=== PATIENT | male | born 1965 | race American Indian/Alaskan Native ===

== ENCOUNTER 2017-07-30 13:27 | Emergency (ER) | payer MEDICARE ==
[2017-07-30 14:05] VITALS: BP 191/109
[2017-07-30] MEDS ORDERED: NORCO 5/325 PO ONE (14:30)
[2017-07-30] MEDS ORDERED: DELTASONE PO ONE (14:30)
[2017-07-30] MEDS ORDERED: MOTRIN PO ONE (14:30)
--- NOTE | 2017-07-30 14:35 | Emergency Department Report ---
Upper Extremity - HPI Chief Complaint: Extremity Problem,Nontraumatic Stated Complaint: LEFT HAND INJURY Time Seen by Provider: 07/30/17 14:29 Upper Extremity: Left Wrist, Left Hand Occurred When: 3 Days Mechanism: Other ("Gout flare") Symptoms: Yes Pain with Movement, Yes Limited Range of Movement, Yes Swelling, No Deformity, No Numbness, No Weakness, No Bruising/Ecchymosis, No Laceration or Abrasion ED Review of Systems ROS: Stated complaint: LEFT HAND INJURY Other details as noted in HPI Constitutional: denies: chills, fever Eyes: denies: eye pain, eye discharge, vision change ENT: denies: ear pain, throat pain Respiratory: denies: cough, shortness of breath, wheezing Cardiovascular: denies: chest pain, palpitations Endocrine: no symptoms reported Gastrointestinal: denies: abdominal pain, nausea, diarrhea Genitourinary: denies: urgency, dysuria Musculoskeletal: joint swelling, arthralgia Skin: denies: rash, lesions Neurological: denies: headache, weakness, paresthesias Psychiatric: denies: anxiety, depression Hematological/Lymphatic: denies: easy bleeding, easy bruising ED Past Medical Hx - Past Medical History Previous Medical History?: Yes Hx Hypertension: Yes Additional medical history: MS, Gout. "irregular heart beat" - Surgical History Past Surgical History?: Yes Additional Surgical History: right hand surgery - Social History Smoking Status: Never Smoker Substance Use Type: None - Medications Home Medications: Home Medications Medication Instructions Recorded Confirmed Last Taken Type Hydrochlorothiazide [HCTZ] 25 mg PO QDAY 09/08/15 09/08/15 Unknown History amLODIPine [Norvasc] 10 mg PO DAILY 09/08/15 09/08/15 Unknown History Colchicine 0.6 mg PO Q60MIN #3 capsule 04/28/16 Unknown Rx Ibuprofen [Motrin 800 MG tab] 800 mg PO Q8HR PRN #30 tablet 04/28/16 Unknown Rx predniSONE [Deltasone] 20 mg PO QDAY #15 tab 04/28/16 Unknown Rx Acetaminophen/Codeine [Tylenol #3] 1 tab PO Q4HR PRN #14 tablet 07/31/16 Unknown Rx Diclofenac Sodium 75 mg PO BID #60 tablet.dr 07/31/16 Unknown Rx Colchicine 0.6 mg PO BID #15 tablet 07/30/17 Unknown Rx Upper Extremity Exam - Exam General: Vital signs noted. No distress. Alert and acting appropriately. Head and Torso: No HEENT Abnormality, No Neck Tenderness, No Chest/Lungs Abnormality, No Abdominal Tenderness, No Back Tenderness Shoulder Exam: Yes Normal Range of Motion in Shoulder, No Shoulder Tenderness, No Clavicle Tenderness, No Shoulder Deformity, No AC Joint Tenderness Arm Exam: No Arm/Humerus Tenderness, No Arm Deformity Elbow: No Elbow Tenderness, No Normal Range of Motion in Elbow, No Elbow Deformity Forearm: No Forearm Tenderness, No Forearm Deformity, No Pain with Pronation, No Pain with Supination Wrist: Yes Wrist Tenderness, No Normal ROM in Wrist (pain swelling with rom ), No Wrist Deformity, No Snuffbox Tenderness, No Pain with Axial Thumb Compression Hand: Yes Hand Tenderness (generalized tenderness swelling warm to touch ), Yes Digit Tenderness (pain swelling generalized ), No Hand Deformity, No Normal ROM in Digit(s), No Digit(s) Deformity, No Tendon Dysfunction CMS Exam: Yes Normal Distal Pulses, Yes Normal Capillary Refill, Yes Normal Distal Sensation, No Broken Skin ED Course Vital Signs 07/30/17 13:56 Temperature 97.8 F Pulse Rate 103 H Respiratory 10 L Rate Blood Pressure 191/109 O2 Sat by Pulse 98 Oximetry ED Medical Decision Making - Medical Decision Making pt is a 52 y/o aam with hx of gout and htn pt states out of medications x 1 month pt presents today for left hand pain, swelling, and hot to touch, pain is 5/10 aching pain is relieved by nothing pain is exacerbated by movement palpation flexion and extension, there is no numbness or tingling. no weakness or numbness exam: left hand wrist and digit swelling rad pulses +2, pain with rom, glass cleaner <3 sec , there is no numbness no weakness. pt denies fall injury or trauma, pt with htn episode today , pt advises that he has not take bp medication today no headach no dizziness no lightheadedness no cp no sob, pt has not take hctz po daily , pt directed to take medications upon arrival to home. Plan: Steroids, nsaids, reassess : pain decreased 1/10 swelling decrease rom improved, plan: refill colchine po , pt will follow up primary care doctor on wednesday 3 days for follow up evaluation. pt again directed to take medications upon arrival to home pt verbalized understanding and agreement with same. pt is currently a/o x 3 ambulatory gait steady with nad at this time. Critical care attestation.: If time is entered above; I have spent that time in minutes in the direct care of this critically ill patient, excluding procedure time. ED Disposition Clinical Impression: Gout Qualifiers: Gout site: wrist Gout etiology: idiopathic Chronicity: acute Laterality: left Qualified Code(s): M10.032 - Idiopathic gout, left wrist Disposition: TO HOME OR SELFCARE Is pt being admited?: No Does the pt Need Aspirin: No Condition: Good Instructions: Acute Gouty Arthritis (ED), Colchicine (By mouth) Prescriptions: Colchicine 0.6 mg PO BID #15 tablet Referrals: PRIMARY CARE, [Primary Care Provider] - 3-5 Days Forms: Work/School Release Form(ED) Time of Disposition: 15:49
== END 2017-07-30 15:59 | disposition home or self-care (01) ==
LOC: ED 13:27
DX: M10.032 Idiopathic gout, left wrist (principal); I10 Essential (primary) hypertension
CPT/HCPCS: 99282; J7512

== ENCOUNTER 2021-01-05 21:03 | Emergency (ER) | payer MEDICARE ==
[2021-01-05 22:11] VITALS: BP 185/109
[2021-01-05] MEDS ORDERED: oxyCODONE /ACETAMINOPHEN 5-325MG TAB PO ONE (22:51)
[2021-01-05] MEDS ORDERED: KETOROLAC 30 MG/1 ML INJ IM ONE (22:51)
[2021-01-05] MEDS ORDERED: COLCHICINE 0.6 MG TAB PO ONE (22:52)
--- NOTE | 2021-01-05 22:57 | Emergency Department Report ---
ED Extremity Problem HPI - General Chief complaint: Extremity Injury, Lower Stated complaint: RIGHT KNEE PAIN Time Seen by Provider: 01/05/21 22:41 Source: patient Mode of arrival: Ambulatory Limitations: No Limitations - History of Present Illness Initial comments: 55-year-old -[place] male presents to the emergency room for right knee gout exacerbation. Patient states is been bothering for the past week. He did start taking his prednisone but failed to take his colchicine and diclofenac's. It was noted the patient had elevated blood pressure of 189/109. Patient denies any headache shortness of breath chest pain. Patient is only taking hydrochlorothiazide 12.5 mg. Patient states he was on another blood pressure medication but discontinued as making him feel uncomfortable. Patient does have a primary care provider. Last seen 2 months ago. Patient had no recent trauma. MD Complaint: joint swelling, joint paint Onset/Timin -: week(s) Location: right, knee History of Same: Yes -: Yes arthralgia Radiation: none Severity scale (0 -10): 9 Quality: stabbing, aching Consistency: constant Improves with: nothing Worsens with: weight bearing, walking, palpation Associated Symptoms: denies other symptoms - Related Data Home Medications Medication Instructions Recorded Confirmed Last Taken amLODIPine [Norvasc] 10 mg PO DAILY 09/08/15 09/08/15 Unknown hydroCHLOROthiazide [HCTZ] 25 mg PO QDAY 09/08/15 09/08/15 Unknown Previous Rx's Medication Instructions Recorded Last Taken Type Colchicine 0.6 mg PO Q60MIN #3 capsule 04/28/16 Unknown Rx Ibuprofen [Motrin 800 MG tab] 800 mg PO Q8HR PRN #30 tablet 04/28/16 Unknown Rx predniSONE [Deltasone] 20 mg PO QDAY #15 tab 04/28/16 Unknown Rx Acetaminophen/Codeine [Tylenol #3] 1 tab PO Q4HR PRN #14 tablet 07/31/16 Unknown Rx Diclofenac Sodium 75 mg PO BID #60 tablet 07/31/16 Unknown Rx Colchicine 0.6 mg PO BID #15 tablet 07/30/17 Unknown Rx amLODIPine 5 mg PO DAILY #30 tab 01/05/21 Unknown Rx traMADoL [Ultram 50 MG tab] 50 mg PO Q4HR PRN #12 tablet 01/05/21 Unknown Rx Allergies Allergy/AdvReac Type Severity Reaction Status Date / Time No Known Allergies Allergy Verified 07/30/17 13:56 ED Review of Systems ROS: Stated complaint: RIGHT KNEE PAIN Other details as noted in HPI Comment: All other systems reviewed and negative ED Past Medical Hx - Past Medical History Previous Medical History?: Yes Hx Hypertension: Yes Additional medical history: MS, Gout. "irregular heart beat" - Surgical History Past Surgical History?: Yes Additional Surgical History: right hand surgery - Social History Smoking Status: Never Smoker - Medications Home Medications: Home Medications Medication Instructions Recorded Confirmed Last Taken Type amLODIPine [Norvasc] 10 mg PO DAILY 09/08/15 09/08/15 Unknown History hydroCHLOROthiazide [HCTZ] 25 mg PO QDAY 09/08/15 09/08/15 Unknown History Colchicine 0.6 mg PO Q60MIN #3 capsule 04/28/16 Unknown Rx Ibuprofen [Motrin 800 MG tab] 800 mg PO Q8HR PRN #30 tablet 04/28/16 Unknown Rx predniSONE [Deltasone] 20 mg PO QDAY #15 tab 04/28/16 Unknown Rx Acetaminophen/Codeine [Tylenol #3] 1 tab PO Q4HR PRN #14 tablet 07/31/16 Unknown Rx Diclofenac Sodium 75 mg PO BID #60 tablet.dr 07/31/16 Unknown Rx Colchicine 0.6 mg PO BID #15 tablet 07/30/17 Unknown Rx amLODIPine 5 mg PO DAILY #30 tab 01/05/21 Unknown Rx traMADoL [Ultram 50 MG tab] 50 mg PO Q4HR PRN #12 tablet 01/05/21 Unknown Rx ED Physical Exam - General Limitations: No Limitations General appearance: alert, in no apparent distress - Head Head exam: Present: atraumatic, normocephalic - Eye Eye exam: Present: normal appearance - ENT ENT exam: Present: mucous membranes moist - Neck Neck exam: Present: normal inspection, full ROM - Respiratory Respiratory exam: Present: normal lung sounds bilaterally. Absent: respiratory distress - Cardiovascular Cardiovascular Exam: Present: regular rate, normal rhythm. Absent: systolic murmur, diastolic murmur, rubs, gallop - Expanded Lower Extremity Exam Right Knee exam: Present: full ROM, tenderness, swelling Lower Leg exam: Present: normal inspection, full ROM - Neurological Exam Neurological exam: Present: alert, oriented X3 - Psychiatric Psychiatric exam: Present: normal affect, normal mood - Skin Skin exam: Present: warm, dry, intact, normal color. Absent: rash ED Course Vital Signs 01/05/21 22:04 Temperature 98.4 F Pulse Rate 108 H Respiratory 20 Rate Blood Pressure 185/109 O2 Sat by Pulse 96 Oximetry ED Medical Decision Making - Medical Decision Making 55-year-old -[place] male presents to the emergency room for right knee gout exacerbation. Patient states is been bothering for the past week. He did start taking his prednisone but failed to take his colchicine and diclofenac's. It was noted the patient had elevated blood pressure of 189/109. Patient denies any headache shortness of breath chest pain. Patient is only taking hy drochlorothiazide 12.5 mg. Patient states he was on another blood pressure medication but discontinued as making him feel uncomfortable. Patient does have a primary care provider. Last seen 2 months ago. Patient had no recent trauma. Patient was given Toradol 30 mg IM, colchicine 1.2 mg p.o. and Percocet 5/3 25 x 2 tablets. Patient be discharged on amlodipine for elevated blood pressure. Di scussed with patient he be placed on amlodipine 5 mg to check his blood pressure if it is still elevated to increase it to 10 mg daily. Also discussed with patient if this medication starts to make him feel uncomfortable to discontinue. Also discussed with patient to follow-up with his primary care provider to discuss checking his testosterone as he was having some ED issues on the blood pressure medication. Also discussed with patient to see if the blood pressure is stabilized on 10 mg and to get a refill from his primary care provider. Critical care attestation.: If time is entered above; I have spent that time in minutes in the direct care of this critically ill patient, excluding procedure time. ED Disposition Clinical Impression: Gout attack Qualifiers: Gout site: knee Gout etiology: unspecified cause Laterality: left Qualified Code(s): M10.9 - Gout, unspecified Hypertension Qualifiers: Hypertension type: essential hypertension Qualified Code(s): I10 - Essential (primary) hypertension Disposition: - TO HOME OR SELFCARE Is pt being admited?: No Does the pt Need Aspirin: No Condition: Stable Instructions: Low-Purine Eating Plan, Hypertension (ED) Additional Instructions: Take pain medication as prescribed. Take your blood pressure medication as prescribed. Recommend to follow-up with your primary care provider. Discussed having your testosterone level checked. Be sure you are taking your colchicine, diclofenac's and prednisone as prescribed. Pain medicine with tramadol given. Be sure not to operate heavy machinery or taking tramadol. Prescriptions: amLODIPine 5 mg PO DAILY #30 tab traMADoL [Ultram 50 MG tab] 50 mg PO Q4HR PRN #12 tablet PRN Reason: Pain Referrals: PRIMARY CARE, [Primary Care Provider] - 3-5 Days SHANT BAKER JR, MD [Staff Physician] - 3-5 Days
== END 2021-01-05 23:10 | disposition home or self-care (01) ==
LOC: ED 21:03
DX: M10.9 Gout, unspecified (principal); I10 Essential (primary) hypertension; Z98.890 Other specified postprocedural states; Z79.1 Long term (current) use of non-steroidal anti-inflammatories (NSAID); Z79.899 Other long term (current) drug therapy
CPT/HCPCS: 96372; 99282; J1885

== ENCOUNTER 2021-11-19 11:56 | Outpatient (CLI) | payer MEDICARE ==
--- NOTE | 2021-11-19 13:29 | XRay Report ---
XR knee BILAT 1-2V INDICATION / CLINICAL INFORMATION: PAIN IN UNSPECIFIED KNEE M25.569. COMPARISON: None available. FINDINGS: BONES/JOINT(S): No acute fracture or subluxation. Mild tricompartmental DJD. SOFT TISSUES: No significant abnormality. ADDITIONAL FINDINGS: None. Signer Name: Jay Mccullough MD Signed: 11/19/2021 1:24 PM Workstation Name: [id number] [facility] [id number]
== END 2021-11-19 11:57 | disposition home or self-care (01) ==
LOC: XRAY 11:56
PROVIDERS: ATTEND Orthopaedic Surgery
DX: M17.0 Bilateral primary osteoarthritis of knee (principal)
CPT/HCPCS: 73565